=== PATIENT | male | born 1995 | race Caucasian/White ===

== ENCOUNTER 2019-08-24 11:35 | Emergency (ER) | payer OTHER ==
[~2019-08-24] VITALS: Ht 188 cm; Wt 101.5 kg
--- NOTE | 2019-08-24 11:40 | NUR ---
Late Entry: Pt walked to room, changed into gown, friend at bedside, NAD, denies additional needs, WCTM.
--- NOTE | 2019-08-24 12:30 | NUR ---
Late Entry: Pt resting in gurney, NAD, denies additional needs, call light within reach, friend at bedside, WCCODEY.
[2019-08-24 12:31] LABS: BASOPHILS # (AUTO) 0.05 x10^3/uL (0-0.1); BASOPHILS % (AUTO) 1 % (0-1); EOSINOPHILS % (AUTO) 5 % (1-7); LYMPHOCYTES # (AUTO) 3.16 x10^3/uL (1-3.4); LYMPHOCYTES % (AUTO) 31 % (22-44); MD NO; MEAN CORPUSCULAR HGB CONC 34.1 g/dL (33.2-36.2); MEAN CORPUSCULAR VOLUME 88.1 fL (81-97); MEAN PLATELET VOLUME 7.8 fL (7.4-10.4); MONOCYTES # (AUTO) 0.82 x10^3/uL (0.2-0.8); MONOCYTES % (AUTO) 8 % (2-9); NEUTROPHILS # (AUTO) 5.76 x10^3/uL (1.8-6.8); NEUTROPHILS % (AUTO) 56 % (42-75); PLATELET COUNT 295 x10^3/uL (130-400); RED BLOOD COUNT 5.86 x10^6/uL (4.38-5.82); RED CELL DISTRIBUTION WIDTH 13.1 % (9.4-14.8)
[2019-08-24 12:40] LABS: ANION GAP 7 mmol/L (5-15); CALCIUM 9.4 mg/dL (8.5-10.1); CHLORIDE 106 mmol/L (98-107); CREATININE 0.91 mg/dL (0.7-1.3)
[2019-08-24 12:41] LABS: ALBUMIN 4.1 g/dL (3.4-5.0)
[2019-08-24 12:43] LABS: ALANINE AMINOTRANSFERASE 42 U/L (12-78); ALKALINE PHOSPHATASE 68 U/L (45-117); BILIRUBIN,TOTAL 0.3 mg/dL (0.2-1.0); TOTAL PROTEIN 8.4 g/dL (6.4-8.2)
[2019-08-24 13:30] VITALS: BP 109/64
--- NOTE | 2019-08-24 13:32 | NUR ---
pt resting in gurney, ready to DC and given instructions, denies additional needs or questions at this time, NAD.
== END 2019-08-24 13:40 | disposition home or self-care (01) ==
LOC: ED 13:30
DX: K62.5 Hemorrhage of anus and rectum (principal); K59.00 Constipation, unspecified
CPT/HCPCS: 36415; 80053; 83690; 85025; 99283

== ENCOUNTER 2019-08-30 22:39 | Emergency (ER) | payer OTHER ==
[~2019-08-30] VITALS: Ht 188 cm; Wt 104.0 kg
[2019-08-30 22:44] VITALS: BP 130/82
--- NOTE | 2019-08-30 22:55 | NUR ---
ERP at bedside.
== END 2019-08-30 23:39 | disposition home or self-care (01) ==
LOC: ED 23:00
DX: K64.8 Other hemorrhoids (principal)
CPT/HCPCS: 99282